=== PATIENT | male | born 2000 | race Caucasian/White ===

== ENCOUNTER 2023-11-08 19:10 | Emergency (ER) | payer OTHER, SELFPAY ==
[2023-11-08 19:19] VITALS: BP 159/97; PULSE 86; RESP 15; O2SAT 97
--- NOTE | 2023-11-08 19:45 | DI.RAD_ITS ---
Exam(s) XR THUMB LT EXAM: XR THUMB LT EXAM DATE/TIME: CLINICAL HISTORY: fall, pain, ttp MCP. TECHNIQUE: 2D digital imaging was performed of the left finger. Three views were obtained. PA/AP, oblique, and lateral views were obtained. COMPARISON: None. FINDINGS: BONES: No acute fracture is present. No bony destructive lesion is seen. JOINTS: No dislocation is present. SOFT TISSUE: Normal. IMPRESSION: No evidence of acute fracture or dislocation. DATA REPOSITORY: RADIATION DOSE DELIVERED:
--- NOTE | 2023-11-08 19:59 | W.ED.GENAD ---
Discharge Plan Disposition Patient Disposition: Home Condition: Stable Discharge Details Clinical Impression: Left thumb sprain Primary Care Provider: Blas Perez ED Provider: Ashok Medel Discharge Instructions Instructions: Finger Sprain (ED) Additional Instructions: Please use thumb spica splint over the next 2 weeks. If you do not notice significant improvement over the next 1 week in pain and mobility, please follow-up with orthopedics. Please contact your primary care physician to arrange follow-up. Return to the ER immediately for any worsening or new concerning symptoms. Referrals: [facility] [Provider Group] Blas Perez [Primary Care Provider] - Discharge Data Discharge Date/Time-TO BE ENTERED AT DEPARTURE: 11/08/23 21:55 HPI General Mode of arrival: ambulatory. Date/Time Provider Initiated Documentation: 11/08/23 19:53. Limitations to Documentation: no limitations. Information obtained by: patient. HPI Narrative: 23-year-old male presents with chief complaint of left thumb pain. Patient notes earlier today he slipped and fell down an embankment and injured his thumb. He is unsure as to the mechanism of injury as this was a fairly rapid fall. He did not hit his head or lose consciousness. He has no pain anywhere else. Patient has difficulty moving his thumb since the fall. Pain localized to proximal thumb. General Stated Complaint: Orthopedic NICOLE: 4 Review of Systems Musculoskeletal Musculoskeletal: Reports as per HPI Exam Extrem Left upper extremity: hand Details: neurosensory exam normal, tenderness Location: of the thumb Location: at the MCP joint and at the proximal phalanx and abnormal ROM of finger Details: pain with active ROM Location: of the thumb and pain with passive ROM Location: of the thumb Course Vital Signs Vital signs: Vital Signs Pulse 86 11/08/23 19:19 Respiratory Rate 15 11/08/23 19:19 Blood Pressure 159/97 H 11/08/23 19:19 Pulse Oximetry 97 11/08/23 19:19 Pulse 86 11/08/23 19:19 Respiratory Rate 15 11/08/23 19:19 Respiratory Effort Normal 11/08/23 19:22 Blood Pressure 159/97 H 11/08/23 19:19 Blood Pressure Position Sitting 11/08/23 19:19 Pulse Oximetry 97 11/08/23 19:19 Oxygen Delivery Method Room Air 11/08/23 19:19 Oxygen Flow Rate 0 11/08/23 19:19 Pain Level 0 11/08/23 19:19 Medical Decision Making 23-year-old male here with left thumb injury that occurred earlier today. Patient has tenderness over his first MCP with associated swelling and limited range of motion. Neuro intact distally. X-ray of the thumb was reviewed by me: No fracture. Suspect thumb sprain. Thumb spica was applied. Plan for outpatient follow-up. Usual customary discharge instructions were reviewed with patient. Quality:SDOH Health Related Social Needs: No Data to Display PFSH All Active Problems (Updated 11/08/23 @ 21:50 by Ashok Medel MD) Left thumb sprain (Acute) Social History Smoking risk assessment performed?: No PAWSS Have you Been Recently Intoxicated or Drunk Within the Last 30 days?: No Have you Ever Experienced Previous Episodes of Alcohol Withdrawal?: No Have you ever Experienced Withdrawal Seizures?: No Have you ever Experienced Delirium Tremens(DT)s?: No Have you ever undergone Alcohol Rehabilitation Treatment (i.e, inpt ot outpatient treatment programs)?: No Have you ever Experienced Blackouts?: No Have you ever Combined Alcohol with other Downers within the last 90 days?: No Have you ever Combined Alcohol with any other Substance of Abuse during the last 90 days?: No Positive Blood Alcohol level on Presentation? [PCS.BAL]: No Evidence of Increased Autonomic Activity (i.e. HR>120, tremor, sweating, agitation, nausea)?: No Result: 0
--- NOTE | 2023-11-08 21:53 | DI.VRAD_ITS ---
PROCEDURE INFORMATION: Exam: XR Left Finger(s) Exam date and time: 11/08/2023 9:10 PM Age: 23 years old Clinical indication: Injury or trauma; Other: Fall, pain, ttp mcp TECHNIQUE: Imaging protocol: Radiologic exam of the left fingers. Views: Minimum 2 views. COMPARISON: No relevant prior studies available. FINDINGS: Bones/joints: No acute fracture or dislocation. 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 Soft tissues: Unremarkable. IMPRESSION: 1. No acute fracture. 2. 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 Ordering:FARTUN Pulido MD
--- NOTE | 2023-11-14 07:42 | NUR.NOTE ---
Accessed Pt chart to obtain the diagnosis for the [facility] paperwork
== END 2023-11-08 21:55 | disposition home or self-care (01) ==
PROVIDERS: Emergency Provider Student in an Organized Health Care Education/Training Program; PCP Family Medicine
DX: S63.602A Unspecified sprain of left thumb, initial encounter (principal); W19.XXXA Unspecified fall, initial encounter
CPT/HCPCS: 29125; 99283; 73140